=== PATIENT | male | born 1955 | race Caucasian/White ===

== ENCOUNTER → 2017-10-29 16:31 | Outpatient (CLI) | payer BC, SELFPAY ==
[2017-10-29 17:59] LABS: Absolute Lymphocyte Count 2.08 X10^3/ul (0.83-4.51); Basophil# 0.01 X10^3/uL; Basophil% 0.2 % (0-1); Eosinophil# 0.06 X10^3/uL; Eosinophils% 1.1 % (0-5); Hematocrit 41.9 % (40-54); Lymphocyte # 2.08 X10^3/ul (4.0); Lymphocyte % 37.7 % (19-41); Mean Corp Hgb Conc 33.4 g/gl (32-36); Mean Corpuscular Hgb 32.9 pg (27.0-32.0); Mean Corpuscular Volume 98.6 fL (80-94); Mean Platelet Vol. 9.8 fl (6.2-12.0); Monocyte# 0.37 X10^3/uL; Monocyte% 6.7 % (0-10); Neutrophil % 54.3 % (47-70); Platelet Count 191 K/mm3 (150-450); RBC Distribution Width CV 13.3 % (11.6-14.6); RBC Distribution Width SD 47.4 fl (35.1-43.9); Red Blood Count 4.25 M/mm3 (4.6-6.2); White Blood Count 5.5 K/mm3 (4.4-11.0)
[2017-10-29 18:03] LABS: POSITIVE COUNT NO; POSITIVE DIFFERENTIAL NO; POSITIVE MORPHOLOGY NO
[2017-10-29 18:28] LABS: ALB/GLOB Ratio 1.1 RATIO (0.9-2.4); AST(SGOT) 15 U/L (15-37); Alanine Aminotransfer ALT/SGPT 26 U/L (16-61); Alkaline Phosphatase 62 U/L (45-117); Anion Gap 8 (5-15); BUN 17 mg/dL (7-18); BUN/Creat Ratio 17.7 RATIO (10-20); Calcium,Total 8.6 mg/dL (8.5-10.1); Chloride 105 mmol/L (98-107); Creatinine, Serum 0.96 mg/dL (0.70-1.30); EST Glomerular Filtration Rate 84 mL/min (>60); Est Glom Filt Rate - Afr Amer 101 mL/min (>60); Globulin 3.6 g/dL (2.2-4.2); Glucose 90 mg/dL (74-106); Protein, Total 7.6 g/dL (6.4-8.2); Rheumatoid Factor < 10.0 IU/mL (<15); Sodium Level 141 mmol/L (136-145)
== END ==
PROVIDERS: Family Provider Family Medicine; PCP Family Medicine; Visit Provider Internal Medicine Rheumatology
DX: L40.59 Other psoriatic arthropathy (principal); L40.8 Other psoriasis; K21.9 Gastro-esophageal reflux disease without esophagitis; I10 Essential (primary) hypertension; Z79.899 Other long term (current) drug therapy
CPT/HCPCS: 36415; 80053; 85025; 86431

== ENCOUNTER 2018-01-08 16:00 | Outpatient (RCR) | payer BC, SELFPAY ==
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
--- NOTE | 2018-01-10 15:30 | DT_ITS ---
This patient was seen during an EMR downtime January 06, 2018 - January 13, 2018. This patient may have a combination of paper and electronic documentation or all paper documentation. All documentation is viewable within the e-chart portion of [facility] for each patient visit.
--- NOTE | 2018-02-02 13:42 | HP.PTDCSUM_ITS ---
HP - PT D/C Summary It has been my pleasure to treat WILDER CARTER under orders from Cale Melendez MD, for the diagnosis of LUMBAR SPINAL STENOSIS for a total of 7 visit (s). Discharge Date: 01/10/18 Please see the following information for a summary of their discharge status. - Subjective Subjective: PATIENT REPORTS HE IS DISAPPOINTED. SENT TO PT F/DR. BADILLO. MRI OF LUMBAR DECLINED PRIOR TO PT. RIGHT HIP INJECTION HELPED FOR 4 DAYS BUT NOW (2 WKS LATER) HIP PAIN IS BACK TO ORIG 5/10. NOT CURRENTLY TAKING ANY PRESCRIPTION PAIN OR ANTI-INFLAM MED'S THAT HE KNOWS OF. DOES TAKE METHOTREXATE. LOW BACK PAIN AND RIGHT HIP/THIGH PAIN RANGES 3-7/10. MAYBE 10% BETTER IN THIGH PAIN BUT THAT IS ALL. - Pain LOW BACK Pain Intensity (Out of 10): 6 RIGHT HIP Pain Intensity (Out of 10): 6 LEFT HIP Pain Intensity (Out of 10): 0 - Overall Improvement % Improvement: 10 - Objective Objective/Function: LUMBAR MVMT LOSS: FLEX - MOD, EXT - FLAKITA, PATTI SG - MOD. LLE STRENGTH AND ROM WFL. LLE DURAL SIGN -NEGATIVE. LLE DECREASED ROM AND STRENGTH OF HIP PHAM INTO IR AND ABD. RIGHT HIP TESTING IS PAIN-LIMITED. POSITIVE RIGHT MEL. POSSIBLE POSITIVE RIGHT DURAL SIGN BUT PATTI LE LIGHT TOUCH INTACT AND SYMM. FETT - NT. INDEP SIT TO STAND. DIFFICULTY INITIATING GAIT RIGHT LE AFTER SITTING. INDEP GAIT INTO PT WITHOUT AD LIMPING ON RIGHT LE. NO PROGESSING WITH AQUATIC THERAPY. Due to electronic downtime procedure , the information from January 06 2018 through January 12 2018 was electronically scanned into the medical record - Goals Goal 1:: DECREASE C/O BACK AND LE SX'S Goal 2:: IMPROVE LIFTING, WALKING, SITTING, STANDING, SOCIAL LIFE, TRAVEL, WORK AND SLEEP FUNCTION Goal 3:: INSTRUCT IN PROPHYLAXIS - Plan Plan: D/C DUE TO LACK OF PROGRESS. PATIENT IS AGREEABLE. - D/C Information If there are questions or concerns regarding this patient's physical therapy, please feel free to call me at [phone]. Thank you for the referral of this patient. Sincerely, Catarina Westfall
== END 2018-01-08 19:00 | disposition home or self-care (01) ==
LOC: PT 16:00
PROVIDERS: Family Provider Family Medicine; PCP Family Medicine; Visit Provider Orthopaedic Surgery
DX: M48.061 Spinal stenosis, lumbar region without neurogenic claudication (principal)
CPT/HCPCS: 97113; 97162; 97164; 97530

== ENCOUNTER → 2018-03-05 15:26 | Outpatient (CLI) | payer BC, SELFPAY ==
[2018-03-12 06:07] LABS: QNTFERON TB Ag Minus Nil Value 0.01 IU/mL (.); QNTFERON TB Ag Value 0.07 IU/mL (.); QNTFERON TB Mitogen Value > 10.00 IU/mL (.); QNTFERON TB Nil Value 0.06 IU/mL (.)
[2018-03-12 11:45] LABS: QNTIFERON TB Gold Negative (Negative)
== END ==
PROVIDERS: Family Provider Family Medicine; PCP Family Medicine; Visit Provider Dermatology Pediatric Dermatology
DX: L40.0 Psoriasis vulgaris (principal); Z79.899 Other long term (current) drug therapy; L70.0 Acne vulgaris
CPT/HCPCS: 86480

== ENCOUNTER → 2018-04-16 11:19 | Outpatient (CLI) | payer BC, SELFPAY ==
--- NOTE | 2018-04-16 12:04 | RAD_ITS ---
STUDY: X-RAY CHEST REASON FOR EXAM: Male, 62 years old. Preop clearance prior to orthopedic surgery. TECHNIQUE: PA and lateral views of the chest. COMPARISON: August 26, 2017. FINDINGS: The lungs are expanded. There appear to be scattered bilateral calcified pulmonary nodules with the largest measuring approximately 5.3 mm. These likely represent granulomas and are similar in appearance on the previous radiograph. There is no demonstrated pleural abnormality. Normal size heart. There are calcified mediastinal and hilar lymph nodes. There is prominence of the pulmonary hilar arteries without peripheral pulmonary vascular congestion. There is atherosclerotic tortuosity of the aortic arch and descending thoracic aorta. There are diffuse degenerative changes of the visualized thoracic spine. Normal visualized ribs, clavicles, and shoulders. There is no demonstrated abnormality of the visualized soft tissue structures of the upper abdomen. RAD/Chest PA and Lateral IMPRESSION: No radiographic evidence of acute cardiopulmonary disease. Electronically Signed: Allison Mccarty MD at 2:45 EDT , Service support ,
--- NOTE | 2018-04-16 12:17 | EKG12_ITS ---
Test Reason : PRE-OP Blood Pressure : / mmHG Vent. Rate : 067 BPM Atrial Rate : 067 BPM P-R Int : 186 ms QRS Dur : 086 ms QT Int : 398 ms P-R-T Axes : 015 -14 009 degrees QTc Int : 420 ms Normal sinus rhythm Voltage criteria for left ventricular hypertrophy Abnormal ECG Confirmed by TERESE ROSEN, CARLTON ([id number]), editor book DWAYNE CARBAJAL ([id number]) on 04/18/2018 1:10:25 PM Referred By: Gerda Booth Confirmed By:CARLTON GUDINO MD
[2018-04-16 12:48] LABS: Hematocrit 39.8 % (40-54); Hemoglobin 13.6 g/dl (13.0-16.5); Mean Corp Hgb Conc 34.2 g/gl (32-36); Mean Corpuscular Hgb 34.5 pg (27.0-32.0); Mean Platelet Vol. 9.3 fl (6.2-12.0); Platelet Count 209 K/mm3 (150-450); RBC Distribution Width CV 12.6 % (11.6-14.6); RBC Distribution Width SD 46.2 fl (35.1-43.9); Red Blood Count 3.94 M/mm3 (4.6-6.2); White Blood Count 5.6 K/mm3 (4.4-11.0)
[2018-04-16 12:49] LABS: Scan Indicated on CBC? Y/N NO
[2018-04-16 13:03] LABS: Anion Gap 9 (5-15); BUN 15 mg/dL (7-18); Calcium,Total 8.5 mg/dL (8.5-10.1); Chloride 110 mmol/L (98-107); Creatinine, Serum 0.94 mg/dL (0.70-1.30); EST Glomerular Filtration Rate 86 mL/min (>60); Est Glom Filt Rate - Afr Amer 104 mL/min (>60); Glucose 97 mg/dL (74-106); Potassium 3.9 mmol/L (3.5-5.1); Sodium Level 143 mmol/L (136-145)
== END ==
PROVIDERS: Family Provider Family Medicine; PCP Family Medicine; Visit Provider Physician Assistant
DX: Z01.810 Encounter for preprocedural cardiovascular examination (principal)
CPT/HCPCS: 36415; 71046; 80048; 85027; 93005

== ENCOUNTER → 2018-04-28 15:49 | Outpatient (CLI) | payer BC, SELFPAY ==
--- NOTE | 2018-04-28 09:01 | HIP_PTH ---
PATIENT: WILDER CARTER LOC: [facility] U#:[id number] AGE/SX: 69/M ROOM: RE04/28/[address]: Dr. Luke Mccarty MD : [id number] BED: DIS: SPEC #: [id number] RECD: 04/28/18 15:19 STATUS: KIRBY VERITO #: [id number] ANTHONY: 04/28/18 09:[address]: Luke Mccarty DEPT: SURGICAL PATHOLOGY RECD BY: Kobe Elkins ENTERED: 04/29/18 09:53 SP TYPE: TOTAL HIP OTHR DR: Dr. Jose Robbins MD [facility] Tissues: Hip, NOS Procedures: Decalcification bone/plaque Surgery Specimen Level IV HEADER OPERATION: Right total hip replacement PRE-OP DIAGNOSIS: Right hip severe arthritis most likely degenerative osteoarthritis, possible psoriatic arthritis TISSUE SUBMITTED: Right hip bone MICROSCOPIC DIAGNOSIS Bone and soft tissue, right hip, total hip replacement/resection: Femoral head with degenerative osteoarthritic changes. Fragments of fibroconnective tissue and reactive synovial tissue with fibrinous exudation. JAQUI:mariela 05/06/18 MICROSCOPIC DESCRIPTION Slides are reviewed. GROSS DESCRIPTION Received is one container labeled with the patient's name and designated bone and soft tissue hip, right. The specimen consists of a clarke femoral head with portion of femoral neck. The femoral head measures 5 x 5 x 4.5 cm and the femoral neck measures up to 1 cm in length.) The articular surface displays prominent osteophyte formation, eburnation and bone erosion. Also present in the specimen container are multiple irregular fragments of bone reamings and pink-yellow soft tissue measuring in aggregate 9 x 8 x 4 cm. [employer] Operator sections are submitted in two cassettes as follows: 1 - soft tissue, 2 - bone after decalcification. / JAQUI:mariela 04/29/18 TC:5 CPT: 93924, 60087
== END ==
PROVIDERS: Family Provider Family Medicine; PCP Family Medicine; Visit Provider Orthopaedic Surgery
DX: M16.11 Unilateral primary osteoarthritis, right hip (principal)
CPT/HCPCS: 88305; 88311

== ENCOUNTER → 2018-05-26 14:43 | Outpatient (CLI) | payer BC, SELFPAY ==
[2018-05-26 17:39] LABS: Absolute Lymphocyte Count 1.79 X10^3/ul (0.83-4.51); Absolute Neutrophil Count 2.9 X10^3/uL (2.0-7.7); Basophil# 0.02 X10^3/uL; Basophil% 0.4 % (0-1); Eosinophil# 0.04 X10^3/uL; Eosinophils% 0.7 % (0-5); Hematocrit 38.6 % (40-54); Hemoglobin 12.5 g/dl (13.0-16.5); Lymphocyte # 1.79 X10^3/ul (4.0); Lymphocyte % 33.5 % (19-41); Mean Corp Hgb Conc 32.4 g/gl (32-36); Mean Corpuscular Hgb 33.2 pg (27.0-32.0); Mean Corpuscular Volume 102.7 fL (80-94); Mean Platelet Vol. 9.6 fl (6.2-12.0); Monocyte# 0.57 X10^3/uL; Monocyte% 10.7 % (0-10); Neutrophil # 2.92 X10^3/uL (2.7-7.7); Neutrophil % 54.7 % (47-70); Platelet Count 191 K/mm3 (150-450); RBC Distribution Width CV 14.1 % (11.6-14.6); RBC Distribution Width SD 52.5 fl (35.1-43.9); Red Blood Count 3.76 M/mm3 (4.6-6.2); White Blood Count 5.3 K/mm3 (4.4-11.0)
[2018-05-26 17:45] LABS: POSITIVE COUNT NO; POSITIVE DIFFERENTIAL NO; POSITIVE MORPHOLOGY NO
[2018-05-26 18:29] LABS: ALB/GLOB Ratio 1.1 RATIO (0.9-2.4); AST(SGOT) 14 U/L (15-37); Alanine Aminotransfer ALT/SGPT 23 U/L (16-61); Alkaline Phosphatase 74 U/L (45-117); Anion Gap 9 (5-15); BUN 16 mg/dL (7-18); BUN/Creat Ratio 15.7 RATIO (10-20); Calcium,Total 8.5 mg/dL (8.5-10.1); Chloride 107 mmol/L (98-107); Creatinine, Serum 1.02 mg/dL (0.70-1.30); EST Glomerular Filtration Rate 78 mL/min (>60); Est Glom Filt Rate - Afr Amer 94 mL/min (>60); Globulin 3.7 g/dL (2.2-4.2); Glucose 84 mg/dL (74-106); Potassium 3.7 mmol/L (3.5-5.1); Protein, Total 7.7 g/dL (6.4-8.2); Sodium Level 143 mmol/L (136-145)
== END ==
PROVIDERS: Family Provider Family Medicine; PCP Family Medicine; Referring Provider Internal Medicine Rheumatology; Visit Provider Internal Medicine Rheumatology
DX: L40.59 Other psoriatic arthropathy (principal); L40.8 Other psoriasis; R09.89 Other specified symptoms and signs involving the circulatory and respiratory systems; M16.0 Bilateral primary osteoarthritis of hip; K21.9 Gastro-esophageal reflux disease without esophagitis; I10 Essential (primary) hypertension; Z79.899 Other long term (current) drug therapy
CPT/HCPCS: 36415; 80053; 85025

== ENCOUNTER 2018-06-09 15:00 | Outpatient (RCR) | payer BC, SELFPAY ==
--- NOTE | 2018-05-02 09:31 | HP.PTEVAL ---
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 Date of Evaluation: 04/30/18 Physical Therapist: Rosalia Bey - Visit Plan Plan: Patient presents with hypomobility. PT services will focus on gaining functional range of motion and strength, decreasing pain, and increasing mobility in walking with LRD. *Follow protocol: no hip flex >90, avoid hip IR, avoid crossing legs. - Subjective Subjective: R AMARIS lateral approach on Saturday. Pain localized to lateral hip, no radiating pain. No numbness or tingling. Pain in morning 7-8/10 better within couple steps, current 5-6/10, worst 10/10, best 4/10. Taking Oxycodone every 6 hours, Amoxicillin and Benadryl as needed; medication providing relief. Icing 2-3 hours a day and providing relief. Sit in recliner and chair at home; most comfortable with feet on ground. Uncomfortable if lean onto R side where incision located. Sleeps supine or L side, feet level without pillows. Able to move around house with 4 wheel walker and in public. Able to walk down driveway twice yesterday. 1 step into house without issue. Getting dressed requires assistance because unable to flex trunk past [address] due to use of pain medications. Physician restrictions include: no trunk flex. greater than 90 degrees, avoid IR of hip, avoid crossing legs. F/u with Dr. Mccarty on 05/08. PMH: torn meniscus R knee, HTN, acid reflux; medications include Pantoprazole and Lisinopril; d/c taking methotrexate for arthritis since surgery. - Pain R lateral hip Pain Intensity (Out of 10): 6 Pain Intensity Range: 4, 10 - Objective Gait: ambulates with 4 wheel walker; slightly decreased dario but functional speed and form. Posture: R knee remains slightly extended as transition stand to sit. Stairs: ascend/descend flight of stairs reciprocally with 2 HR and no AD. Mildly prefers to put weight through L side but overall functional form. Incision: TTP over and around incision. Covered with bandage; no signs of infection. No bruising in area of incision or excessive swelling. Dermatomes: LE intact bilat. AROM: hip flex. supine to 45 degrees difficult with pain in lat. hip. Knee and ankle WNL. Able to toe and heel raise without UE support. Strength: R hip flex: 3/5, hip abd. and add. 4/5, knee and ankle 5/5 throughout. Flexibility: Bilat. hamstring mild restriction. Balance: SL balance bilat. 15 seconds with 1 hand on mat for support; no loss of balance on L, slight sway on R. - Goals Goal 1:: Patient will be I with HEP and progressions. Goal Time Frame: 4-6 Weeks Goal 2:: Patient will present with pain 3/10 for 1 week. Goal Time Frame: 4-6 Weeks Goal 3:: Patient will demonstrate increased hip range of motion to WFL. Goal Time Frame: 4-6 Weeks Goal 4:: Patient will demonstrate increased hip strength to 5/5 where deficits. Goal Time Frame: 4-6 Weeks Goal 5:: Patient will ambulate 200? without use of device with proper form. Goal Time Frame: 4-6 Weeks - Rehabilitation Potential Physical Therapy Diagnosis: R AMARIS resulting in decreased range of motion, strength, and pain that limits patient from full participation in daily activities. Rehabilitation Potential: Excellent - Anticipated Interventions Patient/Client Instruction: Educate patient on: Condition, Plan of Care, Benefits of Fitness Program For the Purpose of:: To increase ROM, To improve muscle performance and motor function, To improve ability to perform ADL's, To improve performance and independence with ADL's, To increase flexibility/ROM, To improve balance Therapeutic Exercise to Include: Strength training, Power training, Endurance training, Balance training, Agility training, Body mechanics, Flexibilty training, Gait and locomotor training, Passive ROM, Active ROM For the Purpose of:: To increase ROM, To improve ability to perform ADL's, To improve performance and independence with ADL's, To improve ability of physical actions for home/community/work/leisure, To increase flexibility/ROM, To improve endurance, To improve balance TENS: Yes Cryotherapy (ice pack, ice massage): Yes Thermo therapy (hot pack): Yes Ultrasound (thermal/non thermal): No For the Purpose of:: To decrease pain Thank you for the opportunity to evaluate your patient. For Medicare and Medicare HMO plans, please review the plan of care and approve it. It will need to be FAXED BACK to us at [phone] for Medicare purposes. Please let me know if there are questions or concerns regarding this plan of care. Physician Signature: Date:
--- NOTE | 2018-06-09 16:11 | HP.PTDCSUM ---
HP - PT D/C Summary It has been my pleasure to treat WILDER CARTER under orders from Gerda Booth, for the diagnosis of R AMARIS for a total of 4 visit(s). Discharge Date: Please see the following information for a summary of their discharge status. - Subjective Subjective: Patient reports that he is doing great- he is getting a lot better- still has a little bit of pain when he takes the first 2-3 steps but its improving - Pain R lateral hip Pain Intensity (Out of 10): 2 - Overall Improvement % Improvement: 85 - Objective Objective/Function: Gait: ambulates with a normal gait pattern and no AD. Posture: good throughout sesion. Stairs: ascend/descend flight of stairs reciprocally with 1 HR and does not pull for ascend. AROM: hip flex. supine to 90 degrees. Able to toe and heel raise without UE support. Strength: R hip flex: 4+/5, hip abd. and add. 4+/5, knee and ankle 5/5 throughout. Flexibility: Bilat. hamstring mild restriction. Balance: SL balance bilat. 30 seconds with mild UE support - Goals Goal 1:: Patient will be I with HEP and progressions. Goal Progress: Goal Met Goal 2:: Patient will present with pain 3/10 for 1 week. Goal Progress: Goal Met Goal 3:: Patient will demonstrate increased hip range of motion to WFL. Goal Progress: Goal Met Goal 4:: Patient will demonstrate increased hip strength to 5/5 where deficits. Goal Progress: Goal Met Goal 5:: Patient will ambulate 200? without use of device with proper form. Goal Progress: Goal Met - Plan Plan: Discharge to HEP - D/C Information If there are questions or concerns regarding this patient's physical therapy, please feel free to call me at [phone]. Thank you for the referral of this patient. Sincerely, Rosalia Bey
== END 2018-06-09 19:00 | disposition home or self-care (01) ==
LOC: PT 15:00
PROVIDERS: Family Provider Family Medicine; PCP Family Medicine; Visit Provider Physician Assistant
DX: Z96.641 Presence of right artificial hip joint (principal)
CPT/HCPCS: 97110; 97161; 97164

== ENCOUNTER 2018-07-14 15:37 | Outpatient (RCR) | payer BC, SELFPAY ==
[2018-07-14 17:54] LABS: Absolute Lymphocyte Count 1.59 X10^3/ul (0.83-4.51); Basophil# 0.01 X10^3/uL; Basophil% 0.2 % (0-1); Eosinophil# 0.05 X10^3/uL; Hematocrit 41.2 % (40-54); Hemoglobin 13.6 g/dl (13.0-16.5); Lymphocyte # 1.59 X10^3/ul (4.0); Lymphocyte % 31.5 % (19-41); Mean Corpuscular Hgb 32.5 pg (27.0-32.0); Mean Corpuscular Volume 98.6 fL (80-94); Mean Platelet Vol. 9.6 fl (6.2-12.0); Monocyte# 0.39 X10^3/uL; Monocyte% 7.7 % (0-10); Neutrophil % 59.6 % (47-70); Platelet Count 201 K/mm3 (150-450); RBC Distribution Width CV 13.2 % (11.6-14.6); RBC Distribution Width SD 46.4 fl (35.1-43.9); Red Blood Count 4.18 M/mm3 (4.6-6.2)
[2018-07-14 18:07] LABS: POSITIVE COUNT NO; POSITIVE DIFFERENTIAL NO; POSITIVE MORPHOLOGY NO
[2018-07-14 18:37] LABS: ALB/GLOB Ratio 1.1 RATIO (0.9-2.4); AST(SGOT) 18 U/L (15-37); Alanine Aminotransfer ALT/SGPT 22 U/L (16-61); Alkaline Phosphatase 64 U/L (45-117); Anion Gap 8 (5-15); BUN 13 mg/dL (7-18); Calcium,Total 8.4 mg/dL (8.5-10.1); Chloride 107 mmol/L (98-107); Creatinine, Serum 0.86 mg/dL (0.70-1.30); EST Glomerular Filtration Rate 94 mL/min (>60); Est Glom Filt Rate - Afr Amer 114 mL/min (>60); Globulin 3.5 g/dL (2.2-4.2); Glucose 85 mg/dL (74-106); Potassium 3.7 mmol/L (3.5-5.1); Protein, Total 7.5 g/dL (6.4-8.2); Sodium Level 143 mmol/L (136-145)
--- OUTSIDE RECORDS SUMMARY | 2018-08-31 00:44 | XMS RPT_ITS ---
:1955 Author Organization OHIP Support Name Relationship Address Phone BARBARA CARTER Unavailable [address] + [place] [address] [employer] Unavailable [address] [place] [address] BARBARA CARTER Unavailable [address] + [place] [address] [employer] Unavailable [address] + [address] [place] [address] OPALNUBIABARBAR[employer] Unavailable [address] + [place] [address] [employer] Unavailable [address] + [address] [place] [address] BRENTANAMBARBARA Unavailable [address] + [place] [address] [employer] Unavailable [address] + [address] [place] [address]BARBARA JUARES Unavailable [address] + [place] [address] [employer] Unavailable [address] + [address] [place] [id number] JOSEPHGETBARBARA MENDIETA Unavailable [address] + [place] [address] [employer] Unavailable [address] + [address] [place] [id number] RAULBARBARA Unavailable [address] + [place] [address] [employer] Unavailable [address] + [address] [place] [address]Donna JOSEPHNUBIAGIANLUCAIE Unavailable [address] + [place] [address] [employer] Unavailable [address] + [place] [address] BARBARA CARTER Unavailable [address] + [place], [place] [id number] BARBARA CARTER Unavailable [address] Unavailable [place] [id number] BARBARA CARTER Unavailable [address] + [place] [address] [employer] Unavailable [address] + [place] [address] BARBARA CARTER Unavailable [address] + [place] [address] [employer] Unavailable [address] + [place] [address] BARBARA CARTER Unavailable [address] + [place], [place] [phone] BARBARA CARTER Unavailable [address] Unavailable [place], [place] [id number] Care Team Providers Name Role Phone ARIES DORSEY MD Admitting Unavailable ARIES DORSEY MD Attending Unavailable ARIES DORSEY MD Primary Care Unavailable NICOLE JASSO MD Consulting Unavailable PROVIDER, UNKNOWN Consulting Unavailable PROVIDER, UNKNOWN Consulting Unavailable PROVIDER, UNKNOWN Consulting Unavailable ARIES DORSEY MD Admitting Unavailable ARIES DORSEY MD Attending Unavailable ARIES DORSEY MD Primary Care Unavailable JOSE ROBBINS Consulting Unavailable PROVIDER, UNKNOWN Consulting Unavailable PROVIDER, UNKNOWN Consulting Unavailable PROVIDER, UNKNOWN Consulting Unavailable Aries Dorsey Attending Unavailable Aries Dorsey Referring Unavailable Jose Robbins Primary Care Unavailable Aries Dorsey Attending Unavailable Aries Dorsey Referring Unavailable Jose Robbins Primary Care Unavailable Aries Dorsey Attending Unavailable Aries Dorsey Referring Unavailable Jose Robbins Primary Care Unavailable CORTES العراقي Attending Unavailable CORTES العراقي Referring Unavailable Jose Robbins Primary Care Unavailable Catie Trivedi Attending Unavailable Catie Trivedi Referring Unavailable Jose Robbins Primary Care Unavailable Gerda Booth Attending Unavailable Gerda Booth Referring Unavailable Jose Robbins Primary Care Unavailable Gerda Booth Attending Unavailable Gerda Booth Referring Unavailable Jose Robbins Primary Care Unavailable Carl Carbajal Attending Unavailable Carl Carbajal Referring Unavailable Jose Robbins Primary Care Unavailable Cara, Central Attending Unavailable Cara, Jermaine Referring Unavailable Alondra Dorseyma Attending Unavailable Aries Dorsey Referring Unavailable Jose Robbins Primary Care Unavailable PROBLEMS PROBLEMS DATE TYPE CONDITION / CODE ATTENDING STATUS SOURCE 08/04/2018 Unknown L40.59 - Other [place], Active Robbins psoriatic arthropathy [facility] / L40.59(ICD-10) Hospital Repository 08/04/2018 Unknown L40.8 - Other [place], Active Allen psoriasis / [facility] Community L40.8(ICD-10) Hospital Repository 08/04/2018 Unknown R09.89 - Other [place], Active Allen specified symptoms and [facility] signs involving the Hospital circulatory and Repository respiratory systems / R09.89(ICD-10) 06/10/2018 Unknown Z96.641 - Presence of Leobardo, Active [facility] Z96.641(ICD-10) Repository 05/26/2018 Unknown Z79.899 - Other long [place]i, Active Robbins term (current) drug [facility] therapy / Hospital Z79.899(ICD-10) Repository 05/26/2018 Unknown 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, Active Allen primary osteoarthritis [facility] of hip / M16.0(ICD-10) Hospital Repository 05/26/2018 Unknown K21.9 - [place]i, Active Allen Gastro-esophageal [facility] reflux disease without Hospital esophagitis / Repository K21.9(ICD-10) 05/26/2018 Unknown I10 - Essential [place]anki, Active Allen (primary) hypertension [facility] / I10(ICD-10) Hospital Repository 05/09/2018 Unknown R94.31 - Abnormal Cara, Central Active [facility] electrocardiogram Community [ECG] [EKG] / Hospital R94.31(ICD-10) Repository 03/05/2018 Unknown L40.0 - Psoriasis Shikha, Catie Active [facility] vulgaris / Community L40.0(ICD-10) Hospital Repository 02/06/2018 Unknown M48.061 - Spinal MALCOM, CORTES Active Robbins stenosis, lumbar Community region without Hospital neurogenic Repository claudication / M48.061(ICD-10) PROCEDURES PROCEDURES No Procedure Records FoundRESULTS RESULTS CBC W/DIFF, AUTOMATED Collected: 07/14/2018 Status: F Source: [place] 3:52 PM [facility] REPOSITORY TYPE CODE TESTS RESULT OUT OF RANGE REFERENCE UNITS LAB L100.1000 4.4-11.0 K/mm3 Normal WBC 5.0 LAB L100.1200 4.6-6.2 M/mm3 Low RBC 4.18 LAB L100.1300 13.0-16.5 g/dl Normal HGB 13.6 LAB L100.1400 40-54 % Normal HCT 41.2 LAB L100.1500 80-94 fL High MCV 98.6 LAB L100.1600 27.0-32.0 pg High MCH 32.5 LAB L100.1700 32-36 g/gl Normal MCHC 33.0 LAB L100.1810 11.6-14.6 % Normal RDW CV 13.2 LAB L100.1820 35.1-43.9 fl High RDW SD 46.4 LAB L100.1900 150-450 K/mm3 Normal PLT 201 LAB L100.2000 6.2-12.0 fl Normal MPV 9.6 LAB L100.2100 47-70 % Normal NEUT% 59.6 LAB L100.2200 19-41 % Normal LY% 31.5 LAB L100.2300 0-10 % Normal MONO% 7.7 LAB L100.2400 0-5 % Normal EO% 1.0 LAB L100.2500 0-1 % Normal BASO% 0.2 LAB L100.2550 0.0-0.9 % Normal IM GRAN % 0.000 Result Comment: IG% - Immature Granulocytes (promyelocytes, myelocytes and metamyelocytes) > 1% indicates that a LEFT SHIFT is Present. LAB L100.2620 2.0-7.7 X10 3/uL Normal Absolute Neut 3.0 LAB L100.2720 0.83-4.51 X10 3/ul Normal Absolute Lymph 1.59 Performed By: #### L100.0100 #### [facility] [address] [place], [address] COMPREHENSIVE METABOLIC Collected: 07/14/2018 Status: F Source: [place] [facility] 3:52 PM [facility] REPOSITORY TYPE CODE TESTS RESULT OUT OF RANGE REFERENCE UNITS LAB L501.0100 74-106 mg/dL Normal GLU 85 Result Comment: Please note revised GLUCOSE reference range effective 2017. LAB L501.1000 7-18 mg/dL Normal BUN 13 LAB L501.1100 0.70-1.30 mg/dL Normal CREAT,SERUM 0.86 Result Comment: The validity of the calculated GFR AND GFRAA in patients over 70 years has not been determined. Clinical correlation is essential. LAB L501.1110 >60 mL/min Normal EST GFR 94 Result Comment: Non- GFR Calc LAB L501.1115 >60 mL/min Normal EST GFR - AA 114 Result Comment: GFR Calc LAB L501.1300 10-20 RATIO Normal BUN/CRE 15.0 LAB L501.1500 6.4-8.2 g/dL T Normal PROT 7.5 LAB L501.1800 3.2-5.0 g/dL Normal ALB 4.0 LAB L501.1950 2.2-4.2 g/dL Normal GLOB 3.5 LAB L501.2000 0.9-2.4 RATIO Normal A/G 1.1 LAB L501.2200 8.5-10.1 mg/dL Low CA 8.4 LAB L501.4100 15-37 U/L Normal AST 18 LAB L501.4305 45-117 U/L Normal ALK P 64 LAB L501.4405 16-61 U/L Normal ALT 22 LAB L501.4600 0.20-1.00 mg/dL T Normal BILI 0.50 LAB L501.5300 136-145 mmol/L NA Normal 143 LAB L501.5600 3.5-5.1 mmol/L K Normal 3.7 LAB L501.5900 98-107 mmol/L CL Normal 107 LAB L501.6100 21.0-32.0 mmol/L Normal CO2 28.0 LAB L501.6200 5-15 Normal GAP 8 Performed By: #### L500.4050 #### [facility] [address] [place], [address] PT D/C SUMMARY (1) Observed: 06/09/2018 Status: F Source: [place] 4:12 PM [facility] REPOSITORY [facility] Physical Therapy [address] [place] [address] Fax REHABILITATION SERVICES DISCHARGE SUMMARY MR#: [id number] Acct: [id number] Name: WILDER CARTER Rep #: [id number] : 1955 62 From: Rosalia Bey DPT Referring DrElla: Gerda Booth Status: REG RCR Insurance: [employer] SELF PAY INSURANCE HP - PT D/C Summary It has been my pleasure to treat WILDER CARTER under orders from Gerda Booth, for the diagnosis of R AMARIS for a total of 4 visit(s). Discharge Date: Please see the following information for a summary of their discharge status. - Subjective Subjective: Patient reports that he is doing great- he is getting a lot better- still has a little bit of pain when he takes the first 2-3 steps but its improving - Pain R lateral hip Pain Intensity (Out of 10): 2 - Overall Improvement % Improvement: 85 - Objective Objective/Function: Gait: ambulates with a normal gait pattern and no AD. Posture: good throughout sesion. Stairs: ascend/descend flight of stairs reciprocally with 1 HR and does not pull for ascend. AROM: hip flex. supine to 90 degrees. Able to toe and heel raise without UE support. Strength: R hip flex: 4+/5, hip abd. and add. 4+/5, knee and ankle 5/5 throughout. Flexibility: Bilat. hamstring mild restriction. Balance: SL balance bilat. 30 seconds with mild UE support - Goals Goal 1:: Patient will be I with HEP and progressions. Goal Progress: Goal Met Goal 2:: Patient will present with pain 3/10 for 1 week. Goal Progress: Goal Met Goal 3:: Patient will demonstrate increased hip range of motion to WFL. Goal Progress: Goal Met Goal 4:: Patient will demonstrate increased hip strength to 5/5 where deficits. Goal Progress: Goal Met Goal 5:: Patient will ambulate 200 without use of device with proper form. Goal Progress: Goal Met - Plan Plan: Discharge to HEP - D/C Information If there are questions or concerns regarding this patient's physical therapy, please feel free to call me at [phone]. Thank you for the referral of this patient. Sincerely, Rosalia Bandar Bey <Electronically signed by Rosalia Bey DPT> 06/09/18 3602 CC: md Jose Robbins; Gerda Booth ELR Signed CBC W/DIFF, AUTOMATED Collected: 05/26/2018 Status: F Source: [place] 3:04 PM [facility] REPOSITORY TYPE CODE TESTS RESULT OUT OF RANGE REFERENCE UNITS LAB L100.1000 4.4-11.0 K/mm3 Normal WBC 5.3 LAB L100.1200 4.6-6.2 M/mm3 Low RBC 3.76 LAB L100.1300 13.0-16.5 g/dl Low HGB 12.5 LAB L100.1400 40-54 % Low HCT 38.6 LAB L100.1500 80-94 fL High MCV 102.7 LAB L100.1600 27.0-32.0 pg High MCH 33.2 LAB L100.1700 32-36 g/gl Normal MCHC 32.4 LAB L100.1810 11.6-14.6 % Normal RDW CV 14.1 LAB L100.1820 35.1-43.9 fl High RDW SD 52.5 LAB L100.1900 150-450 K/mm3 Normal PLT 191 LAB L100.2000 6.2-12.0 fl Normal MPV 9.6 LAB L100.2100 47-70 % Normal NEUT% 54.7 LAB L100.2200 19-41 % Normal LY% 33.5 LAB L100.2300 0-10 % High MONO% 10.7 LAB L100.2400 0-5 % Normal EO% 0.7 LAB L100.2500 0-1 % Normal BASO% 0.4 LAB L100.2550 0.0-0.9 % Normal IM GRAN % 0.000 Result Comment: IG% - Immature Granulocytes (promyelocytes, myelocytes and metamyelocytes) > 1% indicates that a LEFT SHIFT is Present. LAB L100.2620 2.0-7.7 X10 3/uL Normal Absolute Neut 2.9 LAB L100.2720 0.83-4.51 X10 3/ul Normal Absolute Lymph 1.79 Performed By: #### L100.0100 #### [facility] [address] [place], [address] COMPREHENSIVE METABOLIC Collected: 05/26/2018 Status: F Source: [place] 3:04 PM [facility] REPOSITORY TYPE CODE TESTS RESULT OUT OF RANGE REFERENCE UNITS LAB L501.0100 74-106 mg/dL Normal GLU 84 Result Comment: Please note revised GLUCOSE reference range effective 2017. LAB L501.1000 7-18 mg/dL Normal BUN 16 LAB L501.1100 0.70-1.30 mg/dL Normal CREAT,SERUM 1.02 Result Comment: The validity of the calculated GFR AND GFRAA in patients over 70 years has not been determined. Clinical correlation is essential. LAB L501.1110 >60 mL/min Normal EST GFR 78 Result Comment: Non- GFR Calc LAB L501.1115 >60 mL/min Normal EST GFR - AA 94 Result Comment: GFR Calc LAB L501.1300 10-20 RATIO Normal BUN/CRE 15.7 LAB L501.1500 6.4-8.2 g/dL T Normal PROT 7.7 LAB L501.1800 3.2-5.0 g/dL Normal ALB 4.0 LAB L501.1950 2.2-4.2 g/dL Normal GLOB 3.7 LAB L501.2000 0.9-2.4 RATIO Normal A/G 1.1 LAB L501.2200 8.5-10.1 mg/dL CA Normal 8.5 LAB L501.4100 15-37 U/L Low AST 14 LAB L501.4305 45-117 U/L Normal ALK P 74 LAB L501.4405 16-61 U/L Normal ALT 23 LAB L501.4600 0.20-1.00 mg/dL T Normal BILI 0.60 LAB L501.5300 136-145 mmol/L NA Normal 143 LAB L501.5600 3.5-5.1 mmol/L K Normal 3.7 LAB L501.5900 98-107 mmol/L CL Normal 107 LAB L501.6100 21.0-32.0 mmol/L Normal CO2 27.0 LAB L501.6200 5-15 Normal GAP 9 Performed By: #### L500.4050 #### [facility] [address] [place], [address] INITAL EVALUATION (1) Observed: 05/02/2018 Status: F Source: [place] - PT 9:32 AM [facility] REPOSITORY [facility] Physical Therapy [facility] [address] [place] [address] Fax REHABILITATION SERVICES INITIAL EVALUATION MR#: [id number] Acct: [id number] Name: WILDER CARTER Rep #: [id number] : 1955 62 From: Rosalia Bey DPT Referring Dr.: Gerda Booth Status: REG RCR Insurance: [employer] SELF PAY INSURANCE Patient's Visit Information WILDER CARTER is a 62 year old M referred to Physical Therapy by Gerda Booth with a diagnosis of R AMARIS. Date of Evaluation: 04/30/18 Physical Therapist: Rosalia Bey - Visit Plan Plan: Patient presents with hypomobility. PT services will focus on gaining functional range of motion and strength, decreasing pain, and increasing mobility in walking with LRD. *Follow protocol: no hip flex >90, avoid hip IR, avoid crossing legs. - Subjective Subjective: R AMARIS lateral approach on Saturday. Pain localized to lateral hip, no radiating pain. No numbness or tingling. Pain in morning 7-8/10 better within couple steps, current 5-6/10, worst 10/10, best 4/10. Taking Oxycodone every 6 hours, Amoxicillin and Benadryl as needed; medication providing relief. Icing 2-3 hours a day and providing relief. Sit in recliner and chair at home; most comfortable with feet on ground. Uncomfortable if lean onto R side where incision located. Sleeps supine or L side, feet level without pillows. Able to move around house with 4 wheel walker and in public. Able to walk down driveway twice yesterday. 1 step into house without issue. Getting dressed requires assistance because unable to flex trunk past [address] due to use of pain medications. Physician restrictions include: no trunk flex. greater than 90 degrees, avoid IR of hip, avoid crossing legs. F/u with Dr. Carbajal on 05/08. PMH: torn meniscus R knee, HTN, acid reflux; medications include Pantoprazole and Lisinopril; d/c taking methotrexate for arthritis since surgery. - Pain R lateral hip Pain Intensity (Out of 10): 6 Pain Intensity Range: 4, 10 - Objective Gait: ambulates with 4 wheel walker; slightly decreased dario but functional speed and form. Posture: R knee remains slightly extended as transition stand to sit. Stairs: ascend/descend flight of stairs reciprocally with 2 HR and no AD. Mildly prefers to put weight through L side but overall functional form. Incision: TTP over and around incision. Covered with bandage; no signs of infection. No bruising in area of incision or excessive swelling. Dermatomes: LE intact bilat. AROM: hip flex. supine to 45 degrees difficult with pain in lat. hip. Knee and ankle WNL. Able to toe and heel raise without UE support. Strength: R hip flex: 3/5, hip abd. and add. 4/5, knee and ankle 5/5 throughout. Flexibility: Bilat. hamstring mild restriction. Balance: SL balance bilat. 15 seconds with 1 hand on mat for support; no loss of balance on L, slight sway on R. - Goals Goal 1:: Patient will be I with HEP and progressions. Goal Time Frame: 4-6 Weeks Goal 2:: Patient will present with pain 3/10 for 1 week. Goal Time Frame: 4-6 Weeks Goal 3:: Patient will demonstrate increased hip range of motion to WFL. Goal Time Frame: 4-6 Weeks Goal 4:: Patient will demonstrate increased hip strength to 5/5 where deficits. Goal Time Frame: 4-6 Weeks Goal 5:: Patient will ambulate 200 without use of device with proper form. Goal Time Frame: 4-6 Weeks - Rehabilitation Potential Physical Therapy Diagnosis: R AMARIS resulting in decreased range of motion, strength, and pain that limits patient from full participation in daily activities. Rehabilitation Potential: Excellent - Anticipated Interventions Patient/Client Instruction: Educate patient on: Condition, Plan of Care, Benefits of Fitness Program For the Purpose of:: To increase ROM, To improve muscle performance and motor function, To improve ability to perform ADL's, To improve performance and independence with ADL's, To increase flexibility/ROM, To improve balance Therapeutic Exercise to Include: Strength training, Power training, Endurance training, Balance training, Agility training, Body mechanics, Flexibilty training, Gait and locomotor training, Passive ROM, Active ROM For the Purpose of:: To increase ROM, To improve ability to perform ADL's, To improve performance and independence with ADL's, To improve ability of physical actions for home/community/work/leisure, To increase flexibility/ROM, To improve endurance, To improve balance TENS: Yes Cryotherapy (ice pack, ice massage): Yes Thermo therapy (hot pack): Yes Ultrasound (thermal/non thermal): No For the Purpose of:: To decrease pain Thank you for the opportunity to evaluate your patient. For Medicare and Medicare HMO plans, please review the plan of care and approve it. It will need to be FAXED BACK to us at [phone] for Medicare purposes. Please let me know if there are questions or concerns regarding this plan of care. Physician Signature: Date: <Electronically signed by Rosalia Bey DPT> 05/02/18 0932 CC: md Jose Robbins; Gerda Booth ELR Signed For Medicare only, by signing this I certify the plan of care. Physicians Signature Date TOTAL HIP REPLACEMENT Observed: 04/28/2018 Status: F Source: [place] 9:01 AM [facility] REPOSITORY Patient: WILDER CARTER : 1955 (62/M) Acct Num: [id number] Phys: Carl Carbajal MD Unit Num: [id number] Loc: LABSPEC Specimen: [id number] Received: 04/28/18 - 1519 Spec Type: TOTAL HIP TISSUES 1 TISSUES: Hip, NOS GROSS DESCRIPTION Received is one container labeled with the patient's name and designated bone and soft tissue hip, right. The specimen consists of a lcarke femoral head with portion of femoral neck. The femoral head measures 5 x 5 x 4.5 cm and the femoral neck measures up to 1 cm in length.) The articular surface displays prominent osteophyte formation, eburnation and bone erosion. Also present in the specimen container are multiple irregular fragments of bone reamings and pink-yellow soft tissue measuring in aggregate 9 x 8 x 4 cm. Baffle Installer sections are submitted in two cassettes as follows: 1 - soft tissue, 2 - bone after decalcification. / SJ:mariela 04/29/18 TC:5 CPT: 76960, 82919 HEADER OPERATION: Right total hip replacement PRE-OP DIAGNOSIS: Right hip severe arthritis most likely degenerative osteoarthritis, possible psoriatic arthritis TISSUE SUBMITTED: Right hip bone MICROSCOPIC DESCRIPTION Slides are reviewed. MICROSCOPIC DIAGNOSIS Bone and soft tissue, right hip, total hip replacement/resection: Femoral head with degenerative osteoarthritic changes. Fragments of fibroconnective tissue and reactive synovial tissue with fibrinous exudation. SJ:mariela 05/06/18 Signed Trent Quezada 05/06/18 <signature on file> Performed By: #### PHIP #### [facility] [address] [place] [address]. [place], [address] 12 LEAD ELECTROCARDIOGRAM Observed: 04/18/2018 Status: F Source: [place] 1:10 PM [facility] REPOSITORY [facility] Cardiovascular Services [address] [place] [address] 12 Lead EKG 04/16/18 1232 MR#: [id number] Acct: [id number] Name: WILDER CARTER Rep #: [id number] : 1955 62 From: Jermaine Marroquin MD Attending Dr: Gerda Booth Status: REG CLI Ordering Dr: Gerda Booth Date: 04/16/18 Location: LAB Sex: M C Admitted: Test Reason : PRE-OP Blood Pressure : / mmHG Vent. Rate : 067 BPM Atrial Rate : 067 BPM P-R Int : 186 ms QRS Dur : 086 ms QT Int : 398 ms P-R-T Axes : 015 -14 009 degrees QTc Int : 420 ms Normal sinus rhythm Voltage criteria for left ventricular hypertrophy Abnormal ECG Confirmed by JERMAINE MARROQUIN MD ([id number]), content editor DWAYNE CARBAJAL ([id number]) on 04/18/2018 1:10:25 PM Referred By: Gerda Botoh Confirmed By:JERMAINE MARROQUIN MD 04/18/18 1310 Date Jermaine Marroquin MD CC: md Jose Robbins; Gerda Booth Signed CHEST PA AND LATERAL Observed: 04/16/2018 Status: F Source: [place] 12:04 PM [facility] REPOSITORY [facility] Imaging Services [address] [place] [address] Chest PA and Lateral MR#: [id number] Acct: [id number] Name: WILDER CARTER Yuki Rep #: [id number] : 1955 M 62 From: Allison Carbajal MD PCP: Jose Robbins md Status: REG CLI Study: Chest PA and Lateral Date of Exam: 04/16/18 Exam# [id number] Ordering Dr: Gerda Booth STUDY: X-RAY CHEST REASON FOR EXAM: Male, 62 years old. Preop clearance prior to orthopedic surgery. TECHNIQUE: PA and lateral views of the chest. COMPARISON: August 26, 2017. FINDINGS: The lungs are expanded. There appear to be scattered bilateral calcified pulmonary nodules with the largest measuring approximately 5.3 mm. These likely represent granulomas and are similar in appearance on the previous radiograph. There is no demonstrated pleural abnormality. Normal size heart. There are calcified mediastinal and hilar lymph nodes. There is prominence of the pulmonary hilar arteries without peripheral pulmonary vascular congestion. There is atherosclerotic tortuosity of the aortic arch and descending thoracic aorta. There are diffuse degenerative changes of the visualized thoracic spine. Normal visualized ribs, clavicles, and shoulders. There is no demonstrated abnormality of the visualized soft tissue structures of the upper abdomen. RAD/Chest PA and Lateral IMPRESSION: No radiographic evidence of acute cardiopulmonary disease. Electronically Signed: Allison Carbajal MD at 2:45 EDT , Service support , CC: md Jose Robbins; Gerda Booth Bleach Machine Operator: Signed CBC-COMPLETE BLOOD CNT Collected: 04/16/2018 Status: F Source: [place] NO DIFF 11:56 AM [facility] REPOSITORY TYPE CODE TESTS RESULT OUT OF RANGE REFERENCE UNITS LAB L100.1000 4.4-11.0 K/mm3 Normal WBC 5.6 LAB L100.1200 4.6-6.2 M/mm3 Low RBC 3.94 LAB L100.1300 13.0-16.5 g/dl Normal HGB 13.6 LAB L100.1400 40-54 % Low HCT 39.8 LAB L100.1500 80-94 fL High MCV 101.0 LAB L100.1600 27.0-32.0 pg High MCH 34.5 LAB L100.1700 32-36 g/gl Normal MCHC 34.2 LAB L100.1810 11.6-14.6 % Normal RDW CV 12.6 LAB L100.1820 35.1-43.9 fl High RDW SD 46.2 LAB L100.1900 150-450 K/mm3 Normal PLT 209 LAB L100.2000 6.2-12.0 fl Normal MPV 9.3 Performed By: #### L100.0500 #### [facility] [address] [place], [place], [address] BASIC METABOLIC Collected: 04/16/2018 Status: F Source: [place] PROFILE (BMP) 11:56 AM [facility] REPOSITORY TYPE CODE TESTS RESULT OUT OF RANGE REFERENCE UNITS LAB L501.0100 74-106 mg/dL Normal GLU 97 Result Comment: Please note revised GLUCOSE reference range effective 2017. LAB L501.1000 7-18 mg/dL Normal BUN 15 LAB L501.1100 0.70-1.30 mg/dL Normal CREAT,SERUM 0.94 Result Comment: The validity of the calculated GFR AND GFRAA in patients over 70 years has not been determined. Clinical correlation is essential. LAB L501.1110 >60 mL/min Normal EST GFR 86 Result Comment: Non- GFR Calc LAB L501.1115 >60 mL/min Normal EST GFR - AA 104 Result Comment: GFR Calc LAB L501.1300 10-20 RATIO Normal BUN/CRE 16.0 LAB L501.2200 8.5-10.1 mg/dL CA Normal 8.5 LAB L501.5300 136-145 mmol/L NA Normal 143 LAB L501.5600 3.5-5.1 mmol/L K Normal 3.9 LAB L501.5900 98-107 mmol/L High CL 110 LAB L501.6100 21.0-32.0 mmol/L Normal CO2 24.0 LAB L501.6200 5-15 Normal GAP 9 Performed By: #### L500.2500 #### [facility] [address] [place], [address] QUANTIFERON TB-GOLD Collected: 03/05/2018 Status: F Source: [place] 3:29 PM [facility] REPOSITORY TYPE CODE TESTS RESULT OUT OF RANGE REFERENCE UNITS LAB L3400.7025 Negative Normal QFT Negative TB GOLD Result Comment: The specimen received for QuantiFERON testing was incubated by the ordering institution. Specific procedures outlined in our Directory of Services and in the package insert for the QuantiFERON Gold (In Tube) test must be followed to enable for proper stimulation of cells for the production of interferon gamma. LAB L3400.7035 . Normal QFT TB Comment POS CRIT Result Comment: To be considered positive a specimen should have a TB Ag minus Nil value greater than or equal to 0.35 IU/mL and in addition the TB Ag minus Nil value must be greater than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
== END 2018-07-14 16:00 | disposition home or self-care (01) ==
LOC: MTLAB 15:37
PROVIDERS: Family Provider Family Medicine; PCP Family Medicine; Referring Provider Internal Medicine Rheumatology; Visit Provider Internal Medicine Rheumatology
DX: L40.59 Other psoriatic arthropathy (principal); L40.8 Other psoriasis; R09.89 Other specified symptoms and signs involving the circulatory and respiratory systems; M16.0 Bilateral primary osteoarthritis of hip; K21.9 Gastro-esophageal reflux disease without esophagitis; I10 Essential (primary) hypertension; Z79.899 Other long term (current) drug therapy
CPT/HCPCS: 36415; 80053; 85025

== ENCOUNTER → 2018-11-05 16:09 | Outpatient (CLI) | payer MEDICARE, BC, SELFPAY ==
[2018-11-05 17:30] LABS: Absolute Lymphocyte Count 1.61 X10^3/ul (0.83-4.51); Absolute Neutrophil Count 3.6 X10^3/uL (2.0-7.7); Basophil# 0.01 X10^3/uL; Basophil% 0.2 % (0-1); Eosinophil# 0.03 X10^3/uL; Eosinophils% 0.5 % (0-5); Hematocrit 39.4 % (40-54); Hemoglobin 13.3 g/dl (13.0-16.5); Lymphocyte # 1.61 X10^3/ul (4.0); Lymphocyte % 28.5 % (19-41); Mean Corp Hgb Conc 33.8 g/gl (32-36); Mean Corpuscular Volume 97.8 fL (80-94); Mean Platelet Vol. 9.6 fl (6.2-12.0); Monocyte# 0.44 X10^3/uL; Monocyte% 7.8 % (0-10); Neutrophil # 3.56 X10^3/uL (2.7-7.7); Platelet Count 193 K/mm3 (150-450); RBC Distribution Width CV 13.5 % (11.6-14.6); RBC Distribution Width SD 47.2 fl (35.1-43.9); Red Blood Count 4.03 M/mm3 (4.6-6.2); White Blood Count 5.7 K/mm3 (4.4-11.0)
[2018-11-05 17:52] LABS: ALB/GLOB Ratio 1.3 RATIO (0.9-2.4); AST(SGOT) 20 U/L (15-37); Alanine Aminotransfer ALT/SGPT 30 U/L (16-61); Albumin, Serum 4.2 g/dL (3.2-5.0); Alkaline Phosphatase 57 U/L (45-117); Anion Gap 7 (5-15); BUN 11 mg/dL (7-18); Calcium,Total 8.9 mg/dL (8.5-10.1); Chloride 109 mmol/L (98-107); EST Glomerular Filtration Rate 80 mL/min (>60); Est Glom Filt Rate - Afr Amer 97 mL/min (>60); Globulin 3.2 g/dL (2.2-4.2); Glucose 100 mg/dL (74-106); Potassium 3.6 mmol/L (3.5-5.1); Protein, Total 7.4 g/dL (6.4-8.2); Sodium Level 142 mmol/L (136-145)
[2018-11-05 18:00] LABS: POSITIVE COUNT NO; POSITIVE DIFFERENTIAL NO; POSITIVE MORPHOLOGY NO
== END ==
PROVIDERS: Family Provider Family Medicine; PCP Family Medicine; Referring Provider Internal Medicine Rheumatology; Visit Provider Internal Medicine Rheumatology
DX: L40.59 Other psoriatic arthropathy (principal); L40.8 Other psoriasis; R09.89 Other specified symptoms and signs involving the circulatory and respiratory systems; M16.0 Bilateral primary osteoarthritis of hip; K21.9 Gastro-esophageal reflux disease without esophagitis; I10 Essential (primary) hypertension; Z79.899 Other long term (current) drug therapy
CPT/HCPCS: 36415; 80053; 85025

== ENCOUNTER → 2019-03-18 | Outpatient (CLI) | payer MEDICARE, BC, SELFPAY ==
[2019-03-18 17:39] LABS: Absolute Lymphocyte Count 2.04 X10^3/uL (0.83-4.51); Absolute Neutrophil Count 2.9 X10^3/uL (2.0-7.7); Basophil# 0.02 X10^3/uL; Basophil% 0.4 % (0-1); Eosinophil# 0.06 X10^3/uL; Eosinophils% 1.1 % (0-5); Hemoglobin 14.4 g/dL (13.0-16.5); Lymphocyte # 2.04 X10^3/ul (4.0); Lymphocyte % 37.4 % (19-41); Mean Corp Hgb Conc 33.5 g/dL (32-36); Mean Corpuscular Hgb 32.7 pg (27.0-32.0); Mean Corpuscular Volume 97.7 fL (80-94); Mean Platelet Vol. 10.1 fl (6.2-12.0); Monocyte# 0.48 X10^3/uL; Monocyte% 8.8 % (0-10); NRBC Flagged by Analyzer 0 % (0-5); Neutrophil # 2.86 X10^3/uL (2.7-7.7); Neutrophil % 52.3 % (47-70); Platelet Count 200 K/mm3 (150-450); RBC Distribution Width CV 12.1 % (11.6-14.6); RBC Distribution Width SD 44.1 fl (35.1-43.9); White Blood Count 5.5 K/mm3 (4.4-11.0)
[2019-03-18 18:17] LABS: AST(SGOT) 14 U/L (15-37); Alanine Aminotransfer ALT/SGPT 26 U/L (16-61); Albumin, Serum 4.2 g/dL (3.2-5.0); Alkaline Phosphatase 65 U/L (45-117); Anion Gap 8 (5-15); BUN 13 mg/dL (7-18); BUN/Creat Ratio 12.6 RATIO (10-20); Calcium,Total 9.2 mg/dL (8.5-10.1); Chloride 108 mmol/L (98-107); Creatinine, Serum 1.03 mg/dL (0.70-1.30); EST Glomerular Filtration Rate 77 mL/min (>60); Est Glom Filt Rate - Afr Amer 93 mL/min (>60); Glucose 90 mg/dL (74-106); Potassium 3.8 mmol/L (3.5-5.1); Protein, Total 8.2 g/dL (6.4-8.2); Sodium Level 141 mmol/L (136-145)
== END | disposition home or self-care (01) ==
LOC: MTLAB 16:05
PROVIDERS: Family Provider Family Medicine; PCP Family Medicine; Referring Provider Internal Medicine Rheumatology; Visit Provider Internal Medicine Rheumatology
DX: L40.59 Other psoriatic arthropathy (principal); L40.8 Other psoriasis; R09.89 Other specified symptoms and signs involving the circulatory and respiratory systems; M16.0 Bilateral primary osteoarthritis of hip; K21.9 Gastro-esophageal reflux disease without esophagitis; I10 Essential (primary) hypertension; Z79.899 Other long term (current) drug therapy
CPT/HCPCS: 36415; 80053; 85025

== ENCOUNTER → 2019-06-16 | Outpatient (CLI) | payer MEDICARE, BC, SELFPAY ==
[2019-06-16 17:29] LABS: Absolute Lymphocyte Count 2.07 X10^3/uL (0.83-4.51); Absolute Neutrophil Count 2.5 X10^3/uL (2.0-7.7); Basophil# 0.02 X10^3/uL; Basophil% 0.4 % (0-1); Eosinophil# 0.05 X10^3/uL; Hematocrit 41.1 % (40-54); Hemoglobin 13.7 g/dL (13.0-16.5); Lymphocyte # 2.07 X10^3/ul (4.0); Lymphocyte % 40.9 % (19-41); Mean Corp Hgb Conc 33.3 g/dL (32-36); Mean Corpuscular Hgb 33.5 pg (27.0-32.0); Mean Corpuscular Volume 100.5 fL (80-94); Mean Platelet Vol. 9.5 fl (6.2-12.0); Monocyte# 0.37 X10^3/uL; Monocyte% 7.3 % (0-10); NRBC Flagged by Analyzer 0 % (0-5); Neutrophil # 2.54 X10^3/uL (2.7-7.7); Neutrophil % 50.2 % (47-70); Platelet Count 195 K/mm3 (150-450); RBC Distribution Width CV 13.3 % (11.6-14.6); RBC Distribution Width SD 49.2 fl (35.1-43.9); Red Blood Count 4.09 M/mm3 (4.6-6.2); White Blood Count 5.1 K/mm3 (4.4-11.0)
[2019-06-16 18:03] LABS: AST(SGOT) 16 U/L (15-37); Alanine Aminotransfer ALT/SGPT 24 U/L (16-61); Albumin, Serum 3.9 g/dL (3.2-5.0); Alkaline Phosphatase 61 U/L (45-117); Anion Gap 9 (5-15); BUN 11 mg/dL (7-18); BUN/Creat Ratio 10.9 RATIO (10-20); Calcium,Total 8.7 mg/dL (8.5-10.1); Chloride 107 mmol/L (98-107); Creatinine, Serum 1.01 mg/dL (0.70-1.30); EST Glomerular Filtration Rate 79 mL/min (>60); Est Glom Filt Rate - Afr Amer 95 mL/min (>60); Globulin 3.8 g/dL (2.2-4.2); Glucose 98 mg/dL (74-106); Protein, Total 7.7 g/dL (6.4-8.2); Sodium Level 141 mmol/L (136-145)
== END | disposition home or self-care (01) ==
LOC: MTLAB 16:09
PROVIDERS: Family Provider Family Medicine; PCP Family Medicine; Referring Provider Internal Medicine Rheumatology; Visit Provider Internal Medicine Rheumatology
DX: L40.59 Other psoriatic arthropathy (principal); L40.8 Other psoriasis; R09.89 Other specified symptoms and signs involving the circulatory and respiratory systems; M16.0 Bilateral primary osteoarthritis of hip; K21.9 Gastro-esophageal reflux disease without esophagitis; I10 Essential (primary) hypertension; Z79.899 Other long term (current) drug therapy
CPT/HCPCS: 36415; 80053; 85025

== ENCOUNTER → 2019-11-27 | Outpatient (CLI) | payer MEDICARE, OTHER, SELFPAY ==
[2019-11-30 03:06] LABS: QNTFERON TB Mitogen Value > 10.00 IU/mL (.); QNTFERON TB Nil Value 0.01 IU/mL (.); QNTFERON TB1+ Ag Value 0.02 IU/mL (.); QNTFERON TB2+ Ag Value 0.01 IU/mL (.)
[2019-11-30 14:02] LABS: QNTIFERON TB Positive Criteria Negative (Negative)
== END | disposition home or self-care (01) ==
LOC: MTLAB 10:48
PROVIDERS: PCP Family Medicine; Referring Provider Physician Assistant Medical; Visit Provider Physician Assistant Medical
DX: L40.0 Psoriasis vulgaris (principal)
CPT/HCPCS: 36415; 86480

== ENCOUNTER → 2020-07-19 13:31 | Outpatient (CLI) | payer MEDICARE, OTHER, SELFPAY ==
[2020-07-21 20:07] LABS: QNTFERON TB Mitogen Value > 10.00 IU/mL (.); QNTFERON TB Nil Value 0.03 IU/mL (.); QNTFERON TB1+ Ag Value 0.03 IU/mL (.); QNTFERON TB2+ Ag Value 0.03 IU/mL (.)
[2020-07-21 22:47] LABS: QNTIFERON TB Positive Criteria Negative (Negative)
== END ==
PROVIDERS: PCP Family Medicine; Referring Provider Physician Assistant Medical; Visit Provider Physician Assistant Medical
DX: L40.0 Psoriasis vulgaris (principal); L40.59 Other psoriatic arthropathy; Z79.899 Other long term (current) drug therapy
CPT/HCPCS: 36415; 86480

== ENCOUNTER → 2021-03-10 10:10 | Outpatient (CLI) | payer MEDICARE, OTHER, SELFPAY ==
[2021-03-10 12:02] LABS: Absolute Lymphocyte Count 1.57 X10^3/uL (0.83-4.51); Absolute Neutrophil Count 2.8 X10^3/uL (2.0-7.7); Basophil# 0.02 X10^3/uL; Basophil% 0.4 % (0-1); Eosinophil# 0.04 X10^3/uL; Eosinophils% 0.8 % (0-5); Hematocrit 40.3 % (40-54); Hemoglobin 13.3 g/dL (13.0-16.5); Lymphocyte # 1.57 X10^3/ul (0.83-4.51); Lymphocyte % 32.5 % (19-41); Mean Corpuscular Hgb 32.1 pg (27.0-32.0); Mean Corpuscular Volume 97.3 fL (80-94); Mean Platelet Vol. 9.7 fl (6.2-12.0); Monocyte# 0.44 X10^3/uL; Monocyte% 9.1 % (0-10); NRBC Flagged by Analyzer 0 % (0-5); Neutrophil # 2.75 X10^3/uL (2.7-7.7); Platelet Count 195 K/mm3 (150-450); RBC Distribution Width CV 12.6 % (11.6-14.6); RBC Distribution Width SD 45.3 fl (35.1-43.9); Red Blood Count 4.14 M/mm3 (4.6-6.2); White Blood Count 4.8 K/mm3 (4.4-11.0)
[2021-03-10 12:20] LABS: Anion Gap 5 (5-15); BUN 20 mg/dL (7-18); BUN/Creat Ratio 21.1 RATIO (10-20); Calcium,Total 8.5 mg/dL (8.5-10.1); Chloride 110 mmol/L (98-107); Creatinine, Serum 0.95 mg/dL (0.70-1.30); EST Glomerular Filtration Rate 84 mL/min (>60); Est Glom Filt Rate - Afr Amer 102 mL/min (>60); Glucose 107 mg/dL (74-106); Potassium 4.1 mmol/L (3.5-5.1); Sodium Level 140 mmol/L (136-145)
[2021-03-15 03:07] LABS: QNTFERON TB Mitogen Value > 10.00 IU/mL (.); QNTFERON TB Nil Value 0.11 IU/mL (.); QNTFERON TB2+ Ag Value 0.12 IU/mL (.)
[2021-03-15 10:07] LABS: QNTIFERON TB Positive Criteria Negative (Negative)
== END ==
PROVIDERS: PCP Family Medicine; Referring Provider Physician Assistant Medical; Visit Provider Physician Assistant Medical
DX: L40.0 Psoriasis vulgaris (principal); L40.59 Other psoriatic arthropathy; Z79.899 Other long term (current) drug therapy
CPT/HCPCS: 36415; 80048; 85025; 86480

== ENCOUNTER → 2021-12-01 | Outpatient (CLI) | payer MEDICARE, OTHER, SELFPAY ==
[2021-12-05 21:06] LABS: QNTFERON TB Mitogen Value > 10.00 IU/mL (.); QNTFERON TB Nil Value 0.07 IU/mL (.); QNTFERON TB1+ Ag Value 0.07 IU/mL (.); QNTFERON TB2+ Ag Value 0.09 IU/mL (.)
[2021-12-05 22:19] LABS: Hepatitis B Core AB IgM Negative (Negative); QNTIFERON TB Positive Criteria Negative (Negative)
== END | disposition home or self-care (01) ==
LOC: MTLAB 13:23
PROVIDERS: PCP Family Medicine; Referring Provider Physician Assistant Medical; Visit Provider Physician Assistant Medical
DX: L40.0 Psoriasis vulgaris (principal); L40.59 Other psoriatic arthropathy; Z79.899 Other long term (current) drug therapy
CPT/HCPCS: 36415; 86480; 86705

== ENCOUNTER → 2022-11-13 | Outpatient (CLI) | payer MEDICARE, OTHER, SELFPAY ==
[2022-11-15 14:09] LABS: QNTFERON TB Mitogen Value > 10.00 IU/mL (.); QNTFERON TB Nil Value 0.05 IU/mL (.); QNTFERON TB1+ Ag Value 0.05 IU/mL (.); QNTFERON TB2+ Ag Value 0.06 IU/mL (.)
[2022-11-15 21:08] LABS: QNTIFERON TB Positive Criteria Negative (Negative)
== END | disposition home or self-care (01) ==
LOC: MTLAB 09:53
PROVIDERS: PCP Family Medicine; Referring Provider Physician Assistant Medical; Visit Provider Physician Assistant Medical
DX: L40.0 Psoriasis vulgaris (principal); L40.59 Other psoriatic arthropathy; L82.0 Inflamed seborrheic keratosis; B35.6 Tinea cruris; Z79.899 Other long term (current) drug therapy
CPT/HCPCS: 36415; 86480

== ENCOUNTER → 2022-12-07 | Outpatient (CLI) | payer MEDICARE, OTHER, SELFPAY ==
[2022-12-07 12:25] LABS: CREATININE FINGERSTICK < 0.9 mg/dL (0.70-1.30); EGFR FINGERSTICK > 60.0000 mL/min (>60)
--- NOTE | 2022-12-07 13:45 | MRI_ITS ---
INDICATION: TINNITUS, ASYMMETRIC HEARING LOSS EXAMINATION: MRI - MR Brain WO/W Contrast TECHNIQUE: Multiplanar and multisequence MR images of the brain were obtained without and with gadolinium. IV Contrast Dosage and Agent: 20 cc Clariscan COMPARISON: None. FINDINGS: BRAIN PARENCHYMA: No MRI evidence of hemorrhage. No evidence of acute infarct. No intracranial mass or mass effect. There is preservation of the hayes/white matter interface. Normal sella turcica, pituitary gland, infundibular stalk, optic chiasm and hypothalamus. Posterior fossa structures are unremarkable. INTERNAL AUDITORY CANALS: The internal auditory canals are well visualized and patent. No mass identified. CSF SPACES: Appropriate for age. No hydrocephalus. Basal cisterns are patent. VASCULAR SYSTEM: Normal flow voids in the major intracranial circulation. CALVARIUM, SKULL BASE, PARANASAL SINUSES AND MASTOID AIR CELLS: Clear. No expansile changes. ORBITS: Both globes, extraocular muscles, optic nerves and retrobulbar fat appear unremarkable. MRI/Brain W/WO Contrast IMPRESSION: Negative MRI Brain and Internal Auditory Canals. Electronically Signed: Matthew Tran MD at 16:11 EDT ,
== END | disposition home or self-care (01) ==
LOC: MRI 11:03
PROVIDERS: PCP Family Medicine; Referring Provider Otolaryngology; Visit Provider Otolaryngology
DX: H93.19 Tinnitus, unspecified ear (principal); H91.90 Unspecified hearing loss, unspecified ear
CPT/HCPCS: 70553; A9575

== ENCOUNTER → 2023-11-27 | Outpatient (CLI) | payer MEDICARE, OTHER, SELFPAY ==
[2023-11-29 12:09] LABS: QNTFERON TB Mitogen Value > 10.00 IU/mL (.); QNTFERON TB Nil Value 0.09 IU/mL (.); QNTFERON TB1+ Ag Value 0.12 IU/mL (.); QNTFERON TB2+ Ag Value 0.11 IU/mL (.); QNTIFERON TB Positive Criteria Negative (Negative)
== END | disposition home or self-care (01) ==
LOC: MTLAB 13:43
PROVIDERS: PCP Family Medicine; Referring Provider Physician Assistant Medical; Visit Provider Physician Assistant Medical
DX: L40.0 Psoriasis vulgaris (principal); Z79.899 Other long term (current) drug therapy
CPT/HCPCS: 36415; 86480

== ENCOUNTER → 2024-12-18 | Outpatient (CLI) | payer MEDICARE, OTHER, SELFPAY ==
--- NOTE | 2024-12-18 10:00 | HIP_PTH ---
PATIENT: WILDER CARTER LOC: [facility] U#:[id number] AGE/SX: 69/M ROOM: RE12/18/[address]: Dr. Luke Mccarty MD : 1955 BED: DIS: 12/18/2024 SPEC #: [id number] RECD: 12/18/24 15:10 STATUS: KIRBY REPlacido #: [id number] ANTHONY: 12/18/24 10:[address]: Luke Mccarty DEPT: SURGICAL PATHOLOGY RECD BY: Birgit Grande ENTERED: 12/21/24 07:33 SP TYPE: TOTAL HIP OTHR DR: Dr. Jose Robbins MD Tissues: Hip, NOS Procedures: Decalcification bone/plaque Surgery Specimen Level III HEADER OPERATION: Left total hip replacement PRE-OP DIAGNOSIS: Unilateral primary osteoarthritis, left hip TISSUE SUBMITTED: A- Left hip bone and tissue MICROSCOPIC DIAGNOSIS A. Left femoral head, total hip arthroplasty: * Articular bone and soft tissue with reactive/degenerative changes. MICROSCOPIC DESCRIPTION Slides are reviewed. GROSS DESCRIPTION A. Received in formalin in a container labeled with the patient's name, date of , and left hip bone and soft tissue is a 4.8 x 4.8 x 4.5 cm femoral head with attached 1.6 cm in length by 3.8 cm in diameter femoral neck. The resection margin is smooth and firm. The cortical surface is somewhat pitted and granular with a 3.2 cm area of smooth eburnation at the periphery. Sectioning reveals firm and unremarkable cut surfaces. Received in the same container are multiple bone and soft tissue curettings measuring 6.0 x 5.0 x 3.5 cm in aggregate. Heavy Equipment Supervisor sections are submitted in A1 following decalcification. [facility] 12-21-2024 CPT:16671,61735
== END | disposition home or self-care (01) ==
LOC: LAB 15:45
PROVIDERS: PCP Family Medicine; Visit Provider Orthopaedic Surgery
DX: M16.12 Unilateral primary osteoarthritis, left hip (principal)
CPT/HCPCS: 88304; 88305; 88311

== ENCOUNTER → 2025-05-24 | Outpatient (CLI) | payer MEDICARE, OTHER, SELFPAY ==
[2025-05-27 06:08] LABS: QNTFERON TB Mitogen Value > 10.00 IU/mL (.); QNTFERON TB Nil Value 0.04 IU/mL (.); QNTFERON TB1+ Ag Value 0.05 IU/mL (.); QNTFERON TB2+ Ag Value 0.06 IU/mL (.); QNTIFERON TB Positive Criteria Negative (Negative)
== END | disposition home or self-care (01) ==
LOC: MTLAB 10:49
PROVIDERS: PCP Family Medicine; Referring Provider Physician Assistant Medical; Visit Provider Physician Assistant Medical
DX: L40.0 Psoriasis vulgaris (principal)
CPT/HCPCS: 36415; 86480